=== PATIENT | male | born 1990 | race Hispanic/Latino ===

== ENCOUNTER 2021-12-29 12:56 | Emergency (ER) | payer MEDICAID ==
[~2021-12-29] VITALS: Ht 177.8 cm; Wt 63.5 kg
[2021-12-29 14:22] VITALS: BP 135/96
[2021-12-29] MEDS ORDERED: CLIN-141 PO (14:27)
[2021-12-29] MEDS ORDERED: IBUP-2071 PO (14:27)
[2021-12-29] MEDS ORDERED: CLINDAMYCIN 150 MG CAP PO ONE (14:30)
[2021-12-29] MEDS ORDERED: IBUPROFEN 800 MG TAB PO ONE (14:30)
== END 2021-12-29 14:59 | disposition home or self-care (01) ==
LOC: EDH 12:56
DX: K13.79 Other lesions of oral mucosa (principal); K02.9 Dental caries, unspecified; K03.81 Cracked tooth